=== PATIENT | female | born 1960 | race Two or more races ===

== ENCOUNTER 2021-10-11 18:48 | Emergency (ER) | payer MEDICAID ==
[~2021-10-11] VITALS: Ht 147.3 cm; Wt 117.9 kg
[2021-10-11 23:17] VITALS: BP 148/75
== END 2021-10-12 01:01 | disposition home or self-care (01) ==
LOC: ER 18:54
DX: J06.9 Acute upper respiratory infection, unspecified (principal); B02.9 Zoster without complications; R19.7 Diarrhea, unspecified; M94.0 Chondrocostal junction syndrome [Tietze]; R53.83 Other fatigue; M79.10 Myalgia, unspecified site; Z20.822 Contact with and (suspected) exposure to COVID-19
CPT/HCPCS: 36415; 71046; 87426

== ENCOUNTER 2021-11-29 21:42 | Emergency (ER) | payer MEDICAID ==
[~2021-11-29] VITALS: Ht 147.3 cm; Wt 108.9 kg
[2021-11-30 00:35] VITALS: BP 155/55
[2021-11-30] MEDS ORDERED: AZITTAB PO (00:41)
[2021-11-30] MEDS ORDERED: PRED20TA2 PO (00:41)
[2021-11-30] MEDS ORDERED: ACET-1304 PO (00:41)
[2021-11-30] MEDS ORDERED: ASCO500C49 PO (00:41)
[2021-11-30] MEDS ORDERED: ZINC220C10 PO (00:41)
[2021-11-30] MEDS ORDERED: PSEU1SYP6 PO (00:41)
[2021-11-30] MEDS ORDERED: LOP2C PO (01:09)
== END 2021-11-30 01:02 | disposition home or self-care (01) ==
LOC: ER 21:47
DX: U07.1 COVID-19 (principal); M79.10 Myalgia, unspecified site
CPT/HCPCS: 36415; 87426

== ENCOUNTER 2022-01-27 00:10 | Emergency (ER) | payer MEDICAID ==
[~2022-01-27] VITALS: Ht 149.9 cm; Wt 114.8 kg
[~2022-01-27 00:10] MED LIST: ACET-1304 PO; ASCO500C49 PO; AZITTAB PO; LOP2C PO; PRED20TA2 PO; PSEU1SYP6 PO; ZINC220C10 PO
[2022-01-27 00:14] VITALS: BP 151/72
== END 2022-01-27 02:25 | disposition home or self-care (01) ==
LOC: ER 00:16
DX: B34.9 Viral infection, unspecified (principal); R05.9 Cough, unspecified

== ENCOUNTER 2022-10-09 20:12 | Emergency (ER) | payer MEDICAID ==
[2022-10-10 02:00] VITALS: BP 130/65
[2022-10-10] MEDS ORDERED: IPRATROPIUM BROM 0.5 MG/2.5ML INH SOL NEB ONE (02:30)
[2022-10-10] MEDS ORDERED: DexAMETHasone SOD PHOS 4 MG/1ML SDV INJ IM ONE (02:30)
[2022-10-10] MEDS ORDERED: ALBUTEROL SULF 2.5 MG/0.5ML(0.5%) NEB SOLN NEB ONE (02:30)
[2022-10-10] MEDS ORDERED: PRED10TA PO (05:33)
[2022-10-10] MEDS ORDERED: PSEU1SYP6 PO (05:33)
== END 2022-10-10 06:09 | disposition home or self-care (01) ==
LOC: ER 20:12
DX: B34.9 Viral infection, unspecified (principal); R05.9 Cough, unspecified; Z20.822 Contact with and (suspected) exposure to COVID-19
CPT/HCPCS: 36415; 71045; 87070; 87426; 87804; 87880; 94640; 96372; 99284; J1100; J7030; J7644

== ENCOUNTER 2023-06-23 19:21 | Emergency (ER) | payer MEDICAID ==
[~2023-06-23] VITALS: Ht 154.9 cm; Wt 116.3 kg
[~2023-06-23 19:21] MED LIST changes: +PRED10TA PO
[2023-06-23 20:40] VITALS: BP 136/60; PULSE 98; RESP 18; TEMP 98.4; O2SAT 97
[2023-06-23] MEDS ORDERED: CEPH500C PO (21:00)
== END 2023-06-23 21:20 | disposition home or self-care (01) ==
LOC: ER 19:21
DX: L03.312 Cellulitis of back [any part except buttock and flank] (principal); Z79.899 Other long term (current) drug therapy; Z98.890 Other specified postprocedural states

== ENCOUNTER → 2023-12-16 | Outpatient (CLI) | payer MEDICAID ==
[~2023-12-16] MED LIST changes: +CEPH500C PO
[2023-12-16 16:33] LABS: Triglycerides 95 mg/dL (< 150)
[2023-12-16 16:34] LABS: LDL Cholesterol 146 mg/dL (< 100)
[2023-12-16 16:35] LABS: HDL Cholesterol 67 mg/dL (40-59)
[2023-12-16 16:36] LABS: Cholesterol 226 mg/dL (< 200)
== END | disposition home or self-care (01) ==
LOC: LAB 15:36
PROVIDERS: ATTEND Internal Medicine
DX: Z00.00 Encounter for general adult medical examination without abnormal findings (principal); Z12.11 Encounter for screening for malignant neoplasm of colon; E66.9 Obesity, unspecified; R00.2 Palpitations
CPT/HCPCS: 36415; 80061; 82270

== ENCOUNTER → 2024-05-21 | Outpatient (CLI) | payer MEDICAID ==
[2024-05-21 15:52] LABS: Basophils # (auto) 0.1 10 ^3/uL (0-0.2); Basophils % (auto) 0.6 % (0.0-2.0); Eosinophils # (auto) 0.1 10 ^3/uL (0-0.8); Eosinophils % (auto) 0.6 % (0.0-7.0); Hematocrit 37.2 % (36.0-46.0); Hemoglobin 12.2 g/dL (12.2-16.2); Lymphocytes # (auto) 3.6 10 ^3/uL (0.4-5.4); Mean Corpuscular Hemoglobin 26.3 pg (28.0-32.0); Mean Corpuscular Hgb Conc. 32.7 g/dL (32.0-36.0); Mean Corpuscular Volume 80.3 fL (80.0-100.0); Monocytes # (auto) 0.6 10 ^3/uL (0-1.3); Monocytes % (auto) 7.1 % (0.0-12.0); Neutrophils # (auto) 4.2 10 ^3/uL (1.6-8.6); Neutrophils % (auto) 49.7 % (37.0-80.0); Red Blood Cells 4.64 10^6/uL (4.0-5.20); Red Cell Distribution Width 14.6 % (11.8-14.3); White Blood Cell 8.5 10^3/uL (4.4-10.8)
[2024-05-21 16:25] LABS: Erythrocyte Sedimentation Rate 28 mm/hr (0-20)
[2024-05-21 16:41] LABS: Alanine Aminotransferase 26 U/L (7-40); Albumin 4.4 g/dL (3.2-4.8); Alkaline Phosphatase 80 U/L (46-116); Anion Gap 8 (5-15); Aspartate Aminotransferase 18 U/L (13-40); BUN/Creatinine Ratio 16.7 (10.0-20.0); Bilirubin, Total 0.3 mg/dL (0.2-1.0); Blood Urea Nitrogen 11 mg/dL (9-23); Calcium 9.5 mg/dL (8.5-10.1); Carbon Dioxide 23 mmol/L (20-30); Chloride 108 mmol/L (98-107); Cholesterol 246 mg/dL (< 200); Glucose 108 mg/dL (74-106); HDL Cholesterol 72 mg/dL (40-59); LDL Cholesterol 170 mg/dL (< 100); Potassium 3.8 mmol/L (3.5-5.1); Sodium 139 mmol/L (136-145); Total Protein 7.1 g/dL (5.7-8.2); Triglycerides 79 mg/dL (< 150)
[2024-05-21 16:44] LABS: T3 Total 1.27 ng/mL (0.60-1.81)
[2024-05-21 16:45] LABS: Free T4 (Free Thyroxine) 1.1 ng/dL (0.89-1.76)
[2024-05-21 16:53] LABS: Uric Acid 4.2 mg/dL (3.1-7.8)
[2024-05-22 07:06] LABS: Complement C3 185 mg/dL (82-167); Rheumatoid Arthritis Factor <10.0 IU/mL (<14.0)
[2024-05-22 08:06] LABS: Anti-Nuclear Antibody Direct Negative (Negative); Anti-dsDNA Antibody <1 IU/mL (0-9); Antiscleroderma-70 Antibody <0.2 AI (0.0-0.9); RNP Antibody <0.2 AI (0.0-0.9); Sjogren's Anti-SS-A Antibody <0.2 AI (0.0-0.9); Sjogren's Anti-SS-B Antibody <0.2 AI (0.0-0.9); Smith Antibody <0.2 AI (0.0-0.9); Thyroid Peroxidase (TPO) Ab <9 IU/mL (0-34)
[2024-05-23 11:07] LABS: Actin (Smooth Muscle) Antibody 4 Units (0-19); Mitochondrial (M2) Antibody <20.0 Units (0.0-20.0)
[2024-05-23 12:07] LABS: Anti-Striated Muscle Antibody Negative (Neg:<1:100)
== END | disposition home or self-care (01) ==
LOC: LAB 15:21
DX: Z01.419 Encounter for gynecological examination (general) (routine) without abnormal findings (principal); R53.83 Other fatigue; E78.00 Pure hypercholesterolemia, unspecified
CPT/HCPCS: 36415; 80053; 80061; 83036; 84439; 84443; 84480; 84550; 85025; 85652; 86160; 86225; 86235; 86376; 86431

== ENCOUNTER → 2024-08-24 | Outpatient (CLI) | payer MEDICAID ==
[~2024-08-24] MED LIST changes: -LOP2C PO; +LOPE2CAP16 PO
[2024-08-24 15:28] LABS: Triglycerides 81 mg/dL (< 150)
[2024-08-24 15:29] LABS: LDL Cholesterol 138 mg/dL (< 100)
[2024-08-24 15:30] LABS: Cholesterol 217 mg/dL (< 200); HDL Cholesterol 67 mg/dL (40-59)
[2024-08-24 16:01] LABS: Erythrocyte Sedimentation Rate 30 mm/hr (0-20)
== END | disposition home or self-care (01) ==
LOC: LAB 14:49
PROVIDERS: ATTEND Internal Medicine
DX: E03.9 Hypothyroidism, unspecified (principal); E78.5 Hyperlipidemia, unspecified; E66.9 Obesity, unspecified
CPT/HCPCS: 36415; 80061; 83036; 84443; 85652

== ENCOUNTER → 2024-10-08 | Outpatient (CLI) | payer MEDICAID ==
[2024-10-08 16:20] LABS: Triglycerides 115 mg/dL (< 150)
[2024-10-08 16:21] LABS: LDL Cholesterol 161 mg/dL (< 100)
[2024-10-08 16:22] LABS: Cholesterol 253 mg/dL (< 200); HDL Cholesterol 75 mg/dL (40-59)
== END | disposition home or self-care (01) ==
LOC: LAB 15:08
PROVIDERS: ATTEND Internal Medicine
DX: E03.9 Hypothyroidism, unspecified (principal); E66.01 Morbid (severe) obesity due to excess calories
CPT/HCPCS: 36415; 80061; 83036; 84443

== ENCOUNTER → 2024-12-31 | Outpatient (CLI) | payer MEDICAID ==
[2024-12-31 16:47] LABS: Alanine Aminotransferase 25 U/L (7-40); Albumin 4.8 g/dL (3.2-4.8); Alkaline Phosphatase 81 U/L (46-116); Anion Gap 9 (5-15); Aspartate Aminotransferase 9 U/L (13-40); Bilirubin, Direct < 0.1 mg/dL (<0.3); Blood Urea Nitrogen 9 mg/dL (9-23); Calcium 10.1 mg/dL (8.7-10.4); Carbon Dioxide 24 mmol/L (20-31); Chloride 105 mmol/L (98-107); Cholesterol 250 mg/dL (< 200); Glucose 98 mg/dL (74-106); LDL Cholesterol 164 mg/dL (< 100); Potassium 4.2 mmol/L (3.5-5.1); Sodium 138 mmol/L (136-145); Triglycerides 83 mg/dL (< 150)
[2024-12-31 16:48] LABS: Bilirubin, Total 0.3 mg/dL (0.2-1.0); Total Protein 7.6 g/dL (5.7-8.2)
[2024-12-31 16:49] LABS: HDL Cholesterol 76 mg/dL (40-59)
== END | disposition home or self-care (01) ==
LOC: LAB 15:47
PROVIDERS: ATTEND Internal Medicine
DX: E78.5 Hyperlipidemia, unspecified (principal); E03.9 Hypothyroidism, unspecified; R73.03 Prediabetes
CPT/HCPCS: 36415; 80053; 80061; 80076; 83036; 84443

== ENCOUNTER 2025-04-10 23:23 | Emergency (ER) | payer MEDICAID, OTHER ==
[~2025-04-10] VITALS: Ht 154.9 cm; Wt 115.7 kg
[2025-04-11 01:34] VITALS: BP 141/81; PULSE 86; RESP 18; TEMP 98.4; O2SAT 97
[2025-04-11] MEDS ORDERED: ACET500T58 PO (02:13)
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
[2025-04-11] MEDS: ACETAMINOPHEN 325 MG TAB PO ONE (03:31)
--- NOTE | 2025-04-11 04:08 | DVH ---
Examination: CS2 CLINICAL INDICATION: neck pain COMPARISON: None. CONTRAST USED: None. TECHNIQUE: The examination was performed obtaining 2 mm slices in the axial plane. Sagittal and 3D reconstructions were also obtained. Technique for this CT scan was done using principles of ALARA (A s Low As Reasonably Achievable). Multiplanar reconstructions were obtained. FINDINGS: Limited evaluation due to beam hardening artifacts in the spinal canal at C5, C6, C7 and T1 levels. The alignment of the cervical spine is maintained. Straightening of the cervical spine, likely due to paraspinal muscle spasm. Marginal degenerative osteophytes in mid cervical vertebral bodies. The posterior elements are unremarkable. There is no fracture or subluxation. No destructive bony lesion is noted. The pre and paravertebral soft tissues are unremarkable. Atlantoaxial joint shows mild degenerative changes. C2-C3 level: Disc height is within normal limits. There is no significant disc herniation, central canal or neural foraminal narrowing. The facet joints and ligamentum flavum are within normal limits . C3-C4 level: Disc height is within normal limits. There is no significant disc herniation, central canal or neural foraminal narrowing. The facet joints and ligamentum flavum are within normal limits . C4-C5 level: Disc height is within normal limits. There is no significant disc herniation, central canal or neural foraminal narrowing. The facet joints and ligamentum flavum are within normal limits . C5-C6 level: Disc height is reduced. The spinal canal cannot be commented upon due to beam hardenin g artifacts within. Vertebral osteophytes along with mild bilateral facet joint arthropathy causing mild bilateral neural foraminal narrowing. C6-C7 level: Disc height is reduced. The spinal canal cannot be commented upon due to beam hardenin g artifacts within. Vertebral osteophytes along with mild right facetal joint arthropathy causing mi ld right neural foraminal narrowing. C7-T1 level: Disc height is within normal limits. The spinal canal cannot be commented upon due to beam hardening artifacts within. The facet joints are within normal limits. Note that detection of disc herniations is limited with CT, for which an MRI may be obtained if clini xiomara indicated. IMPRESSION: 1. No obvious fracture or dislocation in the cervical spine. 2. Straightening of the cervical spine, likely due to paraspinal muscle spasm. 3. Mild cervical spondylosis as described. 4. Advised further evaluation with MRI cervical spine without contrast if clinically indicated. Electronically Signed 04/11/2025 04:06 Lorraine Storm
--- NOTE | 2025-04-11 04:08 | DVH ---
Examination: HWOCT CLINICAL INDICATION: headache . COMPARISON: None. CONTRAST USED: None. TECHNIQUE: The examination was performed obtaining 5 mm slices without contrast. CT scan was done a ccording to ALARA (As Low as Reasonably Achievable). Multiplanar reconstructions were obtained. FINDINGS: SUPRATENTORIAL BRAIN: Cerebral Hemispheres: There is no midline shift or mass effect, intra or extra-axial fluid collectio ns or hemorrhage. Periventricular White Matter/Basal Ganglia: No abnormal areas of altered attenuation within the feder[place] ventricular white matter or basal ganglia. POSTERIOR FOSSA: The brainstem is normal and the visualized cerebellar hemispheres are unremarkable. VENTRICULAR SYSTEM: Slightly asymmetrical both lateral ventricles with the right one being prominent , a normal variation. There is no evidence of hydrocephalus or transependymal flow of cerebrospinal fluid. SKULL BASE AND PARASELLAR REGION: The skull base is normal with no parasellar masses or abnormalitie s identified. CALVARIUM AND SCALP REGION: No abnormality is seen. PARANASAL SINUSES: No significant inflammatory changes are identified in the visualized paranasal si nuses. IMPRESSION: 1. No evidence of acute large vessel territorial ischemic infarction or intraparenchymal hematoma in current study. 2. No obvious intracranial injury or skull vault fracture. 3. Chronic and/or ancillary findings as described above. 4. Advised further evaluation with MRI brain without contrast if clinically indicated. Electronically Signed 04/11/2025 04:06 Lorraine Storm
--- NOTE | 2025-04-11 04:33 | DVH ---
Examination: LUMB2 Clinical Indication: Not provided Comparison: None. Technique: Two views of the lumbar spine were obtained. Findings: There is normal alignment without fracture. Mineralization is normal. Degenerative osteophytes in the lumbar vertebral bodies. Vertebral body heights are preserved. Disc spaces and posterior elements are normal. No erosive or destructive changes. Visualized paraspinal soft tissues are unremarkable. Bilateral sacroiliac joints are unremarkable. Impression: 1. No acute fracture or subluxation by plain radiography. 2. Advised further evaluation with MRI lumbar spine without contrast if clinically indicated. Electronically Signed 04/11/2025 04:29 Lorraine Storm
== END 2025-04-11 05:02 | disposition home or self-care (01) ==
LOC: ER 23:29
DX: S16.1XXA Strain of muscle, fascia and tendon at neck level, initial encounter (principal); S39.012A Strain of muscle, fascia and tendon of lower back, initial encounter; R51.9 Headache, unspecified; E78.5 Hyperlipidemia, unspecified; V89.2XXA Person injured in unspecified motor-vehicle accident, traffic, initial encounter; Y93.89 Activity, other specified; Y92.410 Unspecified street and highway as the place of occurrence of the external cause; Y99.8 Other external cause status
CPT/HCPCS: 70450; 72100; 72125

== ENCOUNTER 2025-04-30 15:50 | Outpatient (CLI) | payer MEDICAID ==
[~2025-04-30 15:50] MED LIST changes: +ACET500T58 PO
[2025-04-30 16:28] LABS: Alanine Aminotransferase 25 U/L (7-40); Alkaline Phosphatase 81 U/L (46-116); Anion Gap 13 (5-15); Aspartate Aminotransferase 22 U/L (13-40); BUN/Creatinine Ratio 14.3 (10.0-20.0); Blood Urea Nitrogen 11 mg/dL (9-23); Calcium 10.3 mg/dL (8.7-10.4); Carbon Dioxide 22 mmol/L (20-31); Glucose 82 mg/dL (74-106); Potassium 3.7 mmol/L (3.5-5.1); Sodium 143 mmol/L (136-145); Total Protein 7.8 g/dL (5.7-8.2); Triglycerides 81 mg/dL (< 150)
[2025-04-30 16:29] LABS: Bilirubin, Direct 0.1 mg/dL (<0.3); Bilirubin, Total 0.5 mg/dL (0.2-1.0)
[2025-04-30 16:31] LABS: Albumin 4.9 g/dL (3.2-4.8); Chloride 108 mmol/L (98-107); Cholesterol 250 mg/dL (< 200); HDL Cholesterol 70 mg/dL (40-59); LDL Cholesterol 163 mg/dL (< 100)
== END 2025-04-30 17:00 | disposition home or self-care (01) ==
LOC: LAB 15:50
PROVIDERS: ATTEND Internal Medicine
DX: E03.9 Hypothyroidism, unspecified (principal); R73.03 Prediabetes; E83.52 Hypercalcemia; R05.9 Cough, unspecified
CPT/HCPCS: 36415; 80053; 80061; 80076; 82306; 83036; 83970; 84443

== ENCOUNTER → 2025-11-08 | Outpatient (CLI) | payer MEDICARE, MEDICAID ==
[2025-11-08 16:18] LABS: Triglycerides 82 mg/dL (< 150)
[2025-11-08 16:23] LABS: Cholesterol 244 mg/dL (< 200); HDL Cholesterol 72 mg/dL (40-59)
== END | disposition home or self-care (01) ==
LOC: LAB 15:38
PROVIDERS: ATTEND Internal Medicine
DX: E78.5 Hyperlipidemia, unspecified (principal); E66.9 Obesity, unspecified; Z79.899 Other long term (current) drug therapy
CPT/HCPCS: 36415; 80061; 82306; 84443